=== PATIENT | male | born 1950 | race Caucasian/White ===

== ENCOUNTER 2023-11-30 06:41 | Day surgery (SDC) | payer OTHER ==
[~2023-11-30] VITALS: Ht 188 cm; Wt 83.0 kg
[~2023-11-30 06:41] MED LIST: ASPI325 PO; Aspirin EC81 MG PO; Dyazide 37.5-21 EACH PO; EFFIENT; LISI5 PO; NEBI5 PO; PRAV10 PO; Pravachol80 MG PO; TRIHYD253A
[2023-11-30] MEDS ORDERED: TAMS.4ER (07:03)
[2023-11-30] MEDS ORDERED: IRON18 MG (07:03)
[2023-11-30] MEDS ORDERED: propofoL 40 ML IV ONE (07:26)
[2023-11-30] MEDS ORDERED: Lactated Ringer's 1,000 ML IV ONE ×2 (07:26→08:08)
[2023-11-30 08:49] VITALS: BP 133/67
== END 2023-11-30 08:47 | disposition home or self-care (01) ==
LOC: ORSCSDS 06:41
PROVIDERS: Surgery
PROC: 0DJD8ZZ Inspection of Lower Intestinal Tract, Via Natural or Artificial Opening Endoscopic (ICD-10-PCS; principal; 2023-11-30 08:00)
DX: Z12.11 Encounter for screening for malignant neoplasm of colon (principal); Z86.010 Personal history of colon polyps; K57.30 Diverticulosis of large intestine without perforation or abscess without bleeding; I25.10 Atherosclerotic heart disease of native coronary artery without angina pectoris; I25.2 Old myocardial infarction; I10 Essential (primary) hypertension; E78.00 Pure hypercholesterolemia, unspecified; Z87.891 Personal history of nicotine dependence; Z79.899 Other long term (current) drug therapy
CPT/HCPCS: J2704; J7120